=== PATIENT | male | born 1955 | race Caucasian/White ===

== ENCOUNTER 2018-07-21 16:26 | Emergency (ER) | payer OTHER ==
[~2018-07-21] VITALS: Ht 180.3 cm; Wt 81.6 kg
--- NOTE | 2018-07-21 16:59 | NUR ---
PATIENT COMPLAINS OF RIGHT ANKLE PAIN, STATES HE FEEL AT HOME. XRAY OF FOOT BEING DONE AT BEDSIDE
[2018-07-21] MEDS ORDERED: MORPHINE SULFATE 4 MG/1 ML DISP.SYRIN ONE (17:14)
[2018-07-21] MEDS ORDERED: MORPHINE SULFATE 4 MG/1 ML DISP.SYRIN IM ONE (17:15)
--- NOTE | 2018-07-21 17:38 | NUR ---
GIVEN PATIENT DISCHARGE PAPERWORK. GIVEN PRESCRIPTIONS AND PATIENT WILL BE DRIVING HOME. DISCHARGE BELLA WORK SIGNED.
--- NOTE | 2018-07-21 17:58 | NUR ---
I PLACED FIBERGLASS SUGAR TONG AND POSTERIOR SPLINT-SHORT LEG TO RT LEG, THEN DID CRUTCH TRAINING, DISPENSED CRUTHES. PT DEMONSTRATED PROPER CRUTCH USE.
== END 2018-07-21 18:05 | disposition home or self-care (01) ==
LOC: ER 16:29
DX: S82.831A Other fracture of upper and lower end of right fibula, initial encounter for closed fracture (principal); X50.1XXA Overexertion from prolonged static or awkward postures, initial encounter; Y93.89 Activity, other specified; Y92.89 Other specified places as the place of occurrence of the external cause; Y99.8 Other external cause status
CPT/HCPCS: 29515; 73610; 96372; 99283; J2270; A4663